=== PATIENT | female | born 1980 | race Caucasian/White ===

== ENCOUNTER 2018-03-31 04:50 | Emergency (ER) | payer OTHER ==
[~2018-03-31] VITALS: Ht 172.7 cm; Wt 91.8 kg
[2018-03-31 04:56] VITALS: Ht 172.7 cm; Wt 91.8 kg
[2018-03-31 06:14] LABS: CARBON DIOXIDE 26.4 mmol/L (21-32); CHLORIDE SERUM 103 mmol/L (98-107); CREATININE SERUM 0.7 mg/dL (0.6-1.0); GFR1 > 60 mL/min; GLUCOSE SERUM 108 mg/dL (74-106); POTASSIUM SERUM 3.4 mmol/L (3.5-5.1); SODIUM SERUM 140 mmol/L (136-145)
[2018-03-31 06:15] LABS: BASOPHIL % 0.1 % (0-2); PLATELET COUNT 304 x10^3mcL (130-400); RED CELL DISTRIBUTION WIDTH 14.5 % (11.5-14.5)
[2018-03-31 06:18] LABS: ALBUMIN 4.3 g/dL (3.4-5.0); ALKALINE PHOSPHATASE 47 U/L (46-116); ALT/SGPT 23 U/L (14-59); AST/SGOT 15 U/L (15-37); BILIRUBIN TOTAL 0.75 mg/dL (0.20-1.00); LIPASE 85 IU/L (73-393); TOTAL PROTEIN, SERUM 7.8 g/dL (6.4-8.2)
[2018-03-31 09:27] VITALS: BP 145/90
== END 2018-03-31 09:27 | disposition home or self-care (01) ==
LOC: ED 04:50
PROVIDERS: Emergency Medicine
DX: R10.13 Epigastric pain (principal); J45.909 Unspecified asthma, uncomplicated; R11.2 Nausea with vomiting, unspecified
CPT/HCPCS: 36415; J1885

== ENCOUNTER 2019-09-23 08:04 | Inpatient (IN) | payer OTHER ==
[~2019-09-23] VITALS: Ht 172.7 cm; Wt 78.5 kg
[2019-09-23 08:48] LABS: ALBUMIN 3.6 g/dL (3.4-5.0); ALKALINE PHOSPHATASE 82 U/L (46-116); ALT/SGPT 28 U/L (14-59); AST/SGOT 16 U/L (15-37); BILIRUBIN TOTAL 0.6 mg/dL (0.20-1.00); CALCIUM 8.7 mg/dL (8.5-10.1); CARBON DIOXIDE 27.9 mmol/L (21-32); CHLORIDE SERUM 103 mmol/L (98-107); CREATININE SERUM 0.7 mg/dL (0.6-1.0); GFR1 > 60 mL/min; GLUCOSE SERUM 99 mg/dL (74-106); POTASSIUM SERUM 3.9 mmol/L (3.5-5.1); SODIUM SERUM 140 mmol/L (136-145); TOTAL PROTEIN, SERUM 8.1 g/dL (6.4-8.2)
[2019-09-23 09:19] LABS: PLATELET COUNT 408 x10^3mcL (130-400)
[2019-09-23 10:30] LABS: BAND NEUTROPHIL 0 % (0-10); BASOPHIL 0 % (0-2); MONOCYTE 2 % (0-7); SEGMENTED NEUTROPHILS 83 % (37-75)
[2019-09-23 10:31] LABS: rbc morphology (normal/abnorm) ABNORMAL (NORMAL)
[2019-09-23 10:36] LABS: PLATELET MORPHOLOGY PLATELETS INCREASED; ovalocyte/elliptocyte 1+
[2019-09-23] MEDS ORDERED: PROAIR HFA8.5 GM (10:44)
[2019-09-23 12:08] LABS: MAGNESIUM 2.1 mg/dL (1.8-2.4); PHOSPHOROUS 3.3 mg/dL (2.5-4.9)
[2019-09-23 12:18] LABS: FREE T4 1.1 ng/dL (0.76-1.46); FREE THYROXINE INDEX 2.7 ug/dL (1.4-4.5); T4(THYROXINE) 8.6 ug/dL (4.7-13.3)
[2019-09-23 12:30] LABS: T3 TOTAL 1.52 ng/mL
[2019-09-23 13:14] LABS: CHOLESTEROL/HDL RATIO 2.7
[2019-09-23 13:42] VITALS: BP 118/58
[2019-09-23 13:48] VITALS: Ht 172.7 cm; Wt 78.5 kg
[2019-09-23 14:46] VITALS: BP 118/58
[2019-09-23 17:08] LABS: AMPHETAMINE QUAL UR POSITIVE (See below)
[2019-09-23 20:24] VITALS: BP 128/68
[2019-09-24 05:33] VITALS: BP 119/79
[2019-09-24 06:03] LABS: PLATELET COUNT 374 x10^3mcL (130-400)
[2019-09-24 06:56] LABS: CALCIUM 8.6 mg/dL (8.5-10.1); CARBON DIOXIDE 26.9 mmol/L (21-32); CHLORIDE SERUM 101 mmol/L (98-107); CREATININE SERUM 0.7 mg/dL (0.6-1.0); GFR1 > 60 mL/min; GLUCOSE SERUM 92 mg/dL (74-106); POTASSIUM SERUM 3.8 mmol/L (3.5-5.1); SODIUM SERUM 137 mmol/L (136-145)
[2019-09-24 09:17] VITALS: BP 121/69
[2019-09-24 11:34] LABS: ATYPICAL LYMPH 1 %; BAND NEUTROPHIL 6 % (0-10); BASOPHIL 0 % (0-2); MONOCYTE 5 % (0-7); PLATELET MORPHOLOGY PLATELETS INCREASED; SEGMENTED NEUTROPHILS 77 % (37-75); rbc morphology (normal/abnorm) ABNORMAL (NORMAL)
[2019-09-24 13:16] VITALS: BP 120/69
[2019-09-24 17:09] VITALS: BP 119/56
[2019-09-24 21:19] VITALS: BP 128/72
[2019-09-25 05:41] VITALS: BP 123/66
[2019-09-25 06:31] LABS: CALCIUM 9.1 mg/dL (8.5-10.1); CHLORIDE SERUM 104 mmol/L (98-107); CREATININE SERUM 0.6 mg/dL (0.6-1.0); GFR1 > 60 mL/min; GLUCOSE SERUM 134 mg/dL (74-106); POTASSIUM SERUM 4.3 mmol/L (3.5-5.1); SODIUM SERUM 138 mmol/L (136-145)
[2019-09-25 07:45] LABS: CARBON DIOXIDE 26.5 mmol/L (21-32)
[2019-09-25 07:57] LABS: PLATELET COUNT 463 x10^3mcL (130-400); RED CELL DISTRIBUTION WIDTH 24.7 % (11.5-14.5)
[2019-09-25 08:15] VITALS: BP 107/62
[2019-09-25 10:04] LABS: ATYPICAL LYMPH 1 %; BAND NEUTROPHIL 3 % (0-10); MONOCYTE 6 % (0-7); SEGMENTED NEUTROPHILS 80 % (37-75)
[2019-09-25 10:05] LABS: PLATELET MORPHOLOGY PLATELETS INCREASED; rbc morphology (normal/abnorm) ABNORMAL (NORMAL)
[2019-09-25] MEDS ORDERED: NATURAL IRON65 MG PO (10:36)
[2019-09-25] MEDS ORDERED: PROAIR HFA8.5 GM INH (10:43)
[2019-09-25 11:36] LABS: PLATELET COUNT 402 x10^3mcL (130-400)
[2019-09-25 11:44] VITALS: BP 107/62
[2019-09-25] MEDS ORDERED: ZITHROMAX TRI-500 MG PO (11:47)
[2019-09-25 12:06] LABS: BAND NEUTROPHIL 2 % (0-10); MONOCYTE 6 % (0-7)
[2019-09-25 12:07] LABS: SEGMENTED NEUTROPHILS 83 % (37-75); rbc morphology (normal/abnorm) ABNORMAL (NORMAL)
[2019-09-25 12:08] LABS: PLATELET MORPHOLOGY PLATELETS NORMAL
== END 2019-09-25 12:48 | disposition home or self-care (01) | DRG 141 ==
LOC: ED 08:04 → MU 10:40 → DU 10:40 → MU 12:02 → DU 13:33 → MU 09-25 07:49
PROVIDERS: Specialist; ADMIT Family Medicine
PROC: 30233N1 Transfusion of Nonautologous Red Blood Cells into Peripheral Vein, Percutaneous Approach (ICD-10-PCS; principal; 2019-09-23)
DX: J45.901 Unspecified asthma with (acute) exacerbation (principal); J70.5 Respiratory conditions due to smoke inhalation; D64.9 Anemia, unspecified; F15.10 Other stimulant abuse, uncomplicated; F17.210 Nicotine dependence, cigarettes, uncomplicated; J44.9 Chronic obstructive pulmonary disease, unspecified
CPT/HCPCS: 84439; 99406; G0378; J1644; J2920; J7030; J7050; J7613; J7620; J7626; J7644; P9016; Q0092